=== PATIENT | female | born 1990 | race Caucasian/White ===

== ENCOUNTER 2021-05-31 09:49 | Emergency (ER) | payer OTHER ==
[~2021-05-31] VITALS: Ht 165.1 cm; Wt 59.1 kg
[2021-05-31 10:59] LABS: BASO # 0.1 10^3/uL (0.0-0.2); EOS # 0.2 10^3/uL (0.0-0.5); EOS % 2.2 % (0.0-3.0); HEMATOCRIT 45.4 % (36.0-47.0); HEMOGLOBIN 15.1 g/dl (12.0-15.5); LYMPH # 1.5 10^3/uL (1.5-5.0); LYMPH % 21.9 % (24.0-44.0); MEAN CORPUSCULAR HEMOGLOBIN 32.4 pg (27.0-33.0); MEAN CORPUSCULAR HGB CONC 33.3 g/dl (32.0-36.5); MEAN CORPUSCULAR VOLUME 97.4 fl (80.0-96.0); MONO # 0.7 10^3/uL (0.0-0.8); MONO % 9.6 % (2.0-8.0); NEUTROPHILS # 4.4 10^3/uL (1.5-8.5); PLATELET COUNT, AUTOMATED 266 10^3/uL (150-450); RED BLOOD COUNT 4.66 10^6/uL (4.00-5.40); WHITE BLOOD COUNT 6.8 10^3/uL (4.0-10.0)
[2021-05-31 11:54] LABS: BLOOD UREA NITROGEN 8 MG/DL (7-18); CALCIUM LEVEL 8.8 MG/DL (8.5-10.1); CARBON DIOXIDE LEVEL 29 MEQ/L (21-32); CHLORIDE LEVEL 107 MEQ/L (98-107); CREATININE FOR GFR 0.63 MG/DL (0.55-1.30); GLOMERULAR FILTRATION RATE > 60.0 (>60); GLUCOSE, FASTING 96 MG/DL (70-100); POTASSIUM SERUM 4.1 MEQ/L (3.5-5.1); SODIUM LEVEL 141 MEQ/L (136-145)
[2021-05-31 12:21] LABS: GC DNA AMPLIFICATION NEGATIVE (NEGATIVE)
--- NOTE | 2021-05-31 14:00 | REP ---
INDICATION: with bleeding. COMPARISON: None. TECHNIQUE: Multiple ultrasonographic views of the uterus and pelvis, transabdominal and endovaginal imaging and Doppler assessment.. FINDINGS: There is no intrauterine gestation. The uterus is anteverted and normal size measuring 7.0 x 3.2 x 4.3 cm. The endometrium measures 4 mm thickness, this is normal. There is no free fluid within the endometrial canal. Right ovary: The right ovary measures 2.5 x 1.3 x 1.7 cm and is normal size. There is no dominant mass or cyst. Left ovary: The left ovary measures 3.5 x 2.1 x 2.9 cm. Within the left ovary there is a 2.6 x 1.7 x 2.6 cm hypoechoic structure with internal septations, likely an ovarian cyst, however, ectopic gestation is a possibility. There is vascular flow in both ovaries with the Doppler resistive index in the parenchymal arteries of the right ovary measuring 0.64 and left ovary measuring 0.52. There is no free fluid in the pelvis. IMPRESSION: There is no visible intrauterine gestation at this time. This could represent an early gestation not yet visible ultrasonographically, spontaneous or ectopic gestation. There is a hypoechoic structure in the left ovary as described, ovarian cyst versus ectopic gestation. Follow-up is recommended. There is no free fluid within the endometrial canal. There is no free fluid in the pelvis. There is vascular flow in both ovaries. <Electronically signed by Uriah Chen > 05/31/21 [id number]
[2021-05-31 14:01] VITALS: BP 100/73
--- NOTE | 2021-05-31 18:42 | ED PDOC ---
Post-Departure Follow-Up 1st trimester us faxed to dr gillis for fu Megan Harris MD May 31, 2021 18:42
== END 2021-05-31 14:03 | disposition home or self-care (01) ==
LOC: M ED 09:49
DX: O03.9 Complete or unspecified spontaneous abortion without complication (principal); Z87.59 Personal history of other complications of pregnancy, childbirth and the puerperium